=== PATIENT | female | born 1960 | race Caucasian/White ===

== ENCOUNTER 2016-09-15 06:48 | Day surgery (SDC) | payer OTHER ==
[~2016-09-15] VITALS: Ht 157.5 cm; Wt 50.3 kg
[~2016-09-15 06:48] MED LIST: ATOR10TA60 PO; CEFAZOLIN 2GM PREMIX 50 ML IV PRN; FLUT9.9S NS; GABA800T PO; HYDR25TA PO; PREG200C PO; TIZA4CAP3 PO
[2016-09-15] MEDS ORDERED: PROCHLORPERAZINE 10 MG/2 ML VIAL. IV PRN (07:00)
[2016-09-15] MEDS ORDERED: IV RINGERS,LACTATED 1000ML 1,000 ML IV SCH (07:00)
[2016-09-15] MEDS ORDERED: MORPHINE SULFATE 2 MG/ML DISP.SYRIN. IV PRN (07:00)
[2016-09-15] MEDS ORDERED: BUPIVAC MPF-EPI 0.5%-1:200000 30 ML VIAL. ONE (07:00)
[2016-09-15] MEDS ORDERED: ONDANSETRON PF 4 MG/2 ML VIAL. IV PRN (07:00)
[2016-09-15] MEDS ORDERED: LIDOCAINE 1% 1 ML SYRINGE. ID PRN (07:00)
[2016-09-15] MEDS ORDERED: FENTANYL PF 100 MCG/2 ML VIAL. IV PRN (07:00)
[2016-09-15] MEDS ORDERED: HYDROMORPHONE 2 MG/ML VIAL. IV PRN (07:00)
[2016-09-15] MEDS ORDERED: FENTANYL PF 100 MCG/2 ML VIAL. ONE (07:37)
[2016-09-15] MEDS ORDERED: ONDANSETRON PF 4 MG/2 ML VIAL. ONE (07:37)
[2016-09-15] MEDS ORDERED: MIDAZOLAM HCL 2 MG/2 ML VIAL. ONE (07:37)
[2016-09-15] MEDS ORDERED: DEXAMETHASONE SOD PHOS 20 MG/5 ML VIAL. ONE (07:37)
[2016-09-15] MEDS ORDERED: PROPOFOL 20 ML IV ONE (07:37)
[2016-09-15] MEDS ORDERED: LIDOCAINE 2% 100 MG/5 ML DISP.SYRIN. ONE (07:37)
[2016-09-15] MEDS ORDERED: ROCURONIUM 50 MG/5 ML VIAL. ONE (07:38)
[2016-09-15] MEDS ORDERED: PHENYLEPHRINE in 0.9% NACL PF 1 MG/10 ML DISP.SYRIN. IV ONE (08:37)
[2016-09-15] MEDS ORDERED: KETOROLAC 60 MG/2 ML SYRINGE FOR OR. ONE (08:37)
[2016-09-15] MEDS ORDERED: EPHEDRINE PF IN SALINE 50 MG/5 ML DISP.SYRIN. IV ONE (08:57)
[2016-09-15] MEDS ORDERED: NEOSTIGMINE METHYLSULFATE 5 MG/5 ML SYRINGE. ONE (08:59)
[2016-09-15] MEDS ORDERED: GLYCOPYRROLATE 1 MG/5 ML VIAL. ONE (08:59)
[2016-09-15] MEDS ORDERED: SEVOFLURANE 61 TO 120 MINUTES. IH ONE (08:59)
[2016-09-15] MEDS ORDERED: ONDA4TAB7 PO (09:29)
[2016-09-15] MEDS ORDERED: OXYC-323 PO (09:29)
--- NOTE | 2016-09-15 09:44 | PDOC ---
BRIEF OPERATIVE NOTE Pre-Op Diagnosis RIH Post-Op Diagnosis RIH and right fem hernia Procedure Performed lap RIH repair with mesh Surgeon eileen perdomo Anesthesia Type: General Blood Loss 5 IV Fluid 800 Complications 0 Additional Remarks #[id number] MELY PERDOMO MD Sep 15, 2016 09:44
[2016-09-15] MEDS: FENTANYL PF 100 MCG/2 ML VIAL. IV PRN ×4 (09:45→10:18)
[2016-09-15] MEDS ORDERED: OXYCODONE/APAP 5/325 TABLET. PO ONE (10:15)
[2016-09-15 10:48] VITALS: BP 103/52
--- NOTE | 2016-09-15 12:52 | OP ---
DATE OF SURGERY: 09/15/2016 PREOPERATIVE DIAGNOSIS: Right inguinal hernia. POSTOPERATIVE DIAGNOSIS: Right inguinal hernia and right femoral hernia. PROCEDURE: Laparoscopic right inguinal hernia repair with mesh. SURGEON: Mely Perdomo M.D. ANESTHESIA: General. ESTIMATED BLOOD LOSS: 5 mL. IV FLUIDS: 800 mL. INDICATIONS: The patient is a 55-year-old female who presents with a symptomatic right inguinal hernia. She is here to have this repaired. FINDINGS: Upon placing the laparoscope, she had omentum protruding through an indirect right inguinal hernia defect. After dissecting the peritoneal flap, she had a defect in the femoral space that was apparent intraoperatively, but not apparent clinically preoperatively. Both of these were repaired with a single large piece of 3DMax mesh. PROCEDURE IN DETAIL: After informed consent was obtained, the patient was taken to the operating room and placed in supine position. After adequate induction of general anesthesia, she was prepped and draped in the usual sterile fashion. An umbilical skin incision was made with a scalpel. Subcutaneous tissue was spread with a hemostat. [facility] was used to grab the fascia and lift it anteriorly. Veress was used to gain access to the peritoneal cavity. Low opening pressures confirmed intraperitoneal placement of Veress. Pneumoperitoneum to 15 mmHg was established followed by placement of a 12 mm port. 5 mm 30-degree lens was inserted, which revealed good port placement. No evidence of entry trauma. She had an indirect hernia defect with omentum protruding through this defect. Two additional ports were placed after injecting the sites with local anesthetic and they were both 5 mm ports placed on either side of the midline just below the level of the umbilicus. Injection of local was performed at the internal oblique and transversus muscular level under direct vision, just medially and inferior to the ASIS on the right. The peritoneum was then scored laterally to medially on the right side with scissors on cautery and the preperitoneal flap developed. Completion of this dissection which included division of the round ligament. The peritoneal flap had been dissected fully so that the mesh could be placed without rolling. When the peritoneal flap was reapproximated, the indirect space, direct space and femoral space were all exposed and dissection had been carried deep to Samm ligament. During the dissection, it became apparent that she had a defect in the femoral space. This was not clinically apparent preoperatively. First a piece of medium 3DMax mesh was brought into the field and placed within the preperitoneal space against the myopectineal orifice to cover the femoral direct and indirect space. The medium piece was chosen first because she is a very petite patient, but it became apparent that the dissection was wide enough that a large piece of mesh would provide better coverage. Therefore, the medium mesh was removed and a large piece of right-sided 3DMax mesh was placed within the preperitoneal space. It covered the indirect, direct and femoral spaces. It extended to the pubic tubercle medially and extended laterally well beyond the indirect space. They extended deep to Samm ligament and provided better coverage of the myopectineal space. At this point, the mesh was then secured with a secure strap, just above the pubic tubercle and along the rectus muscle anteriorly and then across the anterior abdominal wall. No tacks were placed along Samm ligament and no tacks were placed deep to the iliopubic tract lateral to the internal ring. The mesh lied flat. It did not roll or shift or fold upon reapproximation of the peritoneal flap. The peritoneal flap was reapproximated with a secure strap. At the completion of this, the mesh was completely covered. There were no gaps in the peritoneal flap closure and the peritoneum itself was without defect. Fascial closure device was used to close the fascia at the umbilical incision using 0 Vicryl suture under laparoscopic vision. Ports were removed under direct vision. They were hemostatic. Pneumoperitoneum was desufflated. There was still large enough defect in her umbilical fascia. This was closed with a single 0 Vicryl suture in an interrupted fashion. Skin incision at the umbilicus was injected with local anesthetic and then skin incisions were closed with 4-0 Monocryl in subcuticular fashion. Sterile dressings were placed. She tolerated the procedure well. There were no apparent complications. She was then transferred in stable condition to the recovery room. MELY PERDOMO MD DR: AVERY/monica JOB#: [id number] / [id number] BE Ruiz
== END 2016-09-15 11:41 | disposition home or self-care (01) ==
LOC: SURG 06:48
PROVIDERS: ATTEND Surgery
DX: K40.90 Unilateral inguinal hernia, without obstruction or gangrene, not specified as recurrent (principal); E78.00 Pure hypercholesterolemia, unspecified; J45.909 Unspecified asthma, uncomplicated; K21.9 Gastro-esophageal reflux disease without esophagitis; F41.9 Anxiety disorder, unspecified; Z90.710 Acquired absence of both cervix and uterus; Z87.39 Personal history of other diseases of the musculoskeletal system and connective tissue
CPT/HCPCS: 49650; C1781; J0690; J1100; J1885; J2250; J2370; J2405; J2704; J2710; J3010; J3490; J7030; J0780

== ENCOUNTER 2017-12-15 00:52 | Emergency (ER) | payer OTHER ==
[2017-12-15 01:18] LABS: ADD MAN DIFF? NO
[2017-12-15 01:21] LABS: BILIRUBIN,URINE NEGATIVE (NEG); CLARITY,URINE CLEAR; COLOR,URINE YELLOW; GLUCOSE,URINE NEGATIVE (NEG); NITRITE,URINE NEGATIVE (NEG); PROTEIN,URINE NEGATIVE (NEG-TRACE); UROBILINOGEN,URINE 0.2 mg/dL (0.2 mg/dL)
[2017-12-15 01:23] LABS: BASO % 1 % (0-3); EOS # 0.1 x10^3/uL (0.0-0.7); EOS % 1 % (0-3); HEMATOCRIT 44.1 % (36.0-47.0); HEMOGLOBIN 15.4 g/dL (12.0-15.5); LYMPH # 2.3 x10^3/uL (1.0-4.8); LYMPH % 28 % (24-48); MEAN CORPUSCULAR HEMOGLOBIN 33 pg (25-35); MEAN CORPUSCULAR HGB CONC 35 g/dL (31-37); MEAN CORPUSCULAR VOLUME 93 fL (79-100); MONO % 12 % (0-9); NEUT # 4.8 x10^3uL (1.8-7.7); NEUT % 58 % (31-73); PLATELET COUNT 400 x10^3/uL (140-400); RED BLOOD COUNT 4.76 x10^6/uL (3.50-5.40); RED CELL DISTRIBUTION WIDTH 13.4 % (11.5-14.5); WHITE BLOOD COUNT 8.3 x10^3/uL (4.0-11.0)
[2017-12-15] MEDS: fentaNYL PF VIAL 100 MCG/2 ML VIAL IV (01:29)
[2017-12-15] MEDS: IV NORMAL SALINE 1000ML BAG 1,000 ML IV (01:30)
[2017-12-15] MEDS: ONDANSETRON PF 4 MG/2 ML VIAL. IV (01:30)
[2017-12-15 01:32] LABS: BACTERIA,URINE FEW /HPF (0-FEW); RBC,URINE OCC /HPF (0-2); SQUAMOUS EPITHELIAL CELL,UR MOD /LPF; WBC,URINE OCC /HPF (0-4)
[2017-12-15 01:40] LABS: ANION GAP 10 (6-14); BLOOD UREA NITROGEN 7 mg/dL (7-20); BUN/CREATININE RATIO 12 (6-20); CALCIUM 9.3 mg/dL (8.5-10.1); CARBON DIOXIDE 29 mmol/L (21-32); CHLORIDE 99 mmol/L (98-107); CREATININE 0.6 mg/dL (0.6-1.0); GFR 102.3; SODIUM 138 mmol/L (136-145)
[2017-12-15] MEDS ORDERED: CONTRAST GIVEN. MC (01:45)
[2017-12-15 01:48] LABS: ALBUMIN 4.3 g/dL (3.4-5.0); ALBUMIN/GLOBULIN RATIO 1.4 (1.0-1.7); ALK PHOS 126 U/L (46-116); ALT (SGPT) 24 U/L (14-59); AST (SGOT) 24 U/L (15-37); LIPASE 92 U/L (73-393); TOTAL BILIRUBIN 1.1 mg/dL (0.2-1.0); TOTAL PROTEIN 7.3 g/dL (6.4-8.2)
[2017-12-15 01:51] LABS: TROPONINI < 0.017 ng/mL (0.000-0.055)
[2017-12-15 01:59] LABS: GLUCOSE 145 mg/dL (70-99)
[2017-12-15] MEDS: IOHEXOL 300 MG/ML 100ML VIAL. IV (02:08)
== END 2017-12-15 02:55 | disposition home or self-care (01) ==
LOC: ER 00:52
DX: R10.84 Generalized abdominal pain (principal); K21.9 Gastro-esophageal reflux disease without esophagitis; J45.909 Unspecified asthma, uncomplicated
CPT/HCPCS: 36415; 74177; 80053; 81001; 83690; 84484; 85025; 93005; 96374; 96375; 99285-25; J2405; J3010; J7030; Q9967

== ENCOUNTER 2019-07-20 16:12 | Emergency (ER) | payer MEDICAID, OTHER ==
[~2019-07-20] VITALS: Ht 154.9 cm; Wt 54.4 kg
[~2019-07-20 16:12] MED LIST changes: -CEFAZOLIN 2GM PREMIX 50 ML IV PRN; +ONDA4TAB7 PO; +OXYC1TAB15 PO
[2019-07-20 16:15] VITALS: BP 109/57
--- NOTE | 2019-07-20 16:48 | RAD ---
EXAM: Left hand, 3 views. HISTORY: Fall. Pain. COMPARISON: None. FINDINGS: 3 views of the left hand are obtained. There is no fracture, dislocation or subluxation. No foreign body is seen. IMPRESSION: No acute osseous finding. Electronically signed by: Kalpana Woods MD (07/20/2019 4:45 PM) [facility] [place]
[2019-07-20] MEDS: HYDROcodone/APAP 5/325MG 1 TAB TABLET PO ONE (17:05)
[2019-07-20] MEDS ORDERED: METH4TAB2 PO (17:44)
--- NOTE | 2019-07-20 17:44 | PHYS DOC ---
Past Medical History Past Medical History: Anxiety, Asthma, GERD Additional Past Medical Histor: hypercholesterol,hemeroids,rsd L foot,L foot neuroma Additional Past Surgical Histo: hernia, hemmeroidectomy, r foot Alcohol Use: None Drug Use: None Adult General Chief Complaint Chief Complaint: HAND PROBLEM HPI HPI Patient is a 58 year old female who presents to the ED today with a sharp 4/10 left hand pain that began after she fell. She reports tripping on the grandchildren's toys while playing and falling. Denies any loss of consciousness. Patient reports pain on the dorsal aspect of the left hand. Reports pain being worse on touching the area. Review of Systems Review of Systems Constitutional: Denies fever or chills [] Musculoskeletal: Reports left hand pain Integument: Denies rash or skin lesions [] Neurologic: Denies headache, focal weakness or sensory changes [] All other systems were reviewed and found to be within normal limits, except as documented in this note. Current Medications Current Medications Current Medications Medications (Trade) Dose Ordered Sig/Gabriel Start Time Stop Time Status Last Admin Dose Admin Acetaminophen/ Hydrocodone Bitart (Lortab 5/325) 1 tab 1X ONCE 07/20/19 16:45 07/20/19 16:46 DC 07/20/19 17:05 1 TAB Allergies Allergies Allergies Coded Allergies Type Severity Reaction Last Updated Verified No Known Drug Allergies 09/15/16 No Physical Exam Physical Exam Constitutional: Well developed, well nourished, no acute distress, non-toxic appearance. [] Skin: Warm, dry, no erythema, no rash. [] Back: No tenderness, no CVA tenderness. [] Extremities: Left hand with no obvious deformity, soft tissue swelling noted on the dorsal aspect of the hand, no scaphoid tenderness, full range of motion to the left hand and fingers, adequate radial, medial, ulnar sensation to the left hand. +2 left radial pulse. Cap refill less than 2 seconds the left fingers. Neurologic: Alert and oriented X 3, normal motor function, normal sensory function, no focal deficits noted. [] Psychologic: Affect normal, judgement normal, mood normal. [] Current Patient Data Vital Signs Vital Signs Date Time Temp Pulse Resp B/P (MAP) Pulse Ox O2 Delivery O2 Flow Rate FiO2 07/20/19 17:05 Room Air 07/20/19 16:15 98.3 91 12 109/57 (74) 97 98.3 EKG EKG [] Radiology/Procedures Radiology/Procedures []PROCEDURE: HAND LEFT 3V EXAM: Left hand, 3 views. HISTORY: Fall. Pain. COMPARISON: None. FINDINGS: 3 views of the left hand are obtained. There is no fracture, dislocation or subluxation. No foreign body is seen. IMPRESSION: No acute osseous finding. Electronically signed by: Kalpana Ortega MD (07/20/2019 4:45 PM) [facility] [place] DICTATED and SIGNED BY: KALPANA ORTEGA MD DATE: 07/20/19 5599 Course & Med Decision Making Course & Med Decision Making Pertinent Labs and Imaging studies reviewed. (See chart for details) This is a 58-year-old female patient presented to the ED today with left hand pain status post falling. Left hand x-rays interpreted by radiologist are negative for any acute findings. Velcro splint applied to the left hand by the ED RN, neurovascular exam is intact. Ice elevation encouraged. Follow-up with orthopedic doctor in one week. Dragon Disclaimer Dragon Disclaimer This electronic medical record was generated, in whole or in part, using a voice recognition dictation system. Departure Departure Impression: Primary Impression: Sprain of left hand Additional Impression: Fall from standing Disposition: HOME, SELF-CARE Condition: STABLE Referrals: BE FANG (PCP) DIANE SAUL MD follow up in 1-2 weeks Patient Instructions: Joint Sprain Additional Instructions: You were seen for left hand sprain, your left hand x-rays are negative for any acute findings. Try to ice and elevate the extremity. Follow-up with the orthopedic doctor provided in one week if pain continues. Scripts Methylprednisolone (MEDROL) 4 Mg Tab.ds.pk 1 PKG PO UD, #1 PKG Prov: RODRIGO DAMON SAP BASIS 07/20/19 Problem Qualifiers Primary Impression: Sprain of left hand Encounter type: initial encounter Qualified Codes: S63.92XA - Sprain of unspecified part of left wrist and hand, initial encounter Additional Impression: Fall from standing Encounter type: initial encounter Qualified Codes: W19.XXXA - Unspecified fall, initial encounter CAYETANORODRIGO DAVIS SAP BASIS Jul 20, 2019 17:44
== END 2019-07-20 17:50 | disposition home or self-care (01) ==
LOC: ER 16:12
DX: S63.92XA Sprain of unspecified part of left wrist and hand, initial encounter (principal); K21.9 Gastro-esophageal reflux disease without esophagitis; J45.909 Unspecified asthma, uncomplicated; E78.00 Pure hypercholesterolemia, unspecified; W01.0XXA Fall on same level from slipping, tripping and stumbling without subsequent striking against object, initial encounter; Y93.89 Activity, other specified; Y92.89 Other specified places as the place of occurrence of the external cause; Y99.8 Other external cause status
CPT/HCPCS: 29125; 73130; 99284-25